=== PATIENT | female | born 1960 | race Caucasian/White ===

== ENCOUNTER 2016-06-24 20:15 | Emergency (ER) | payer OTHER ==
--- NOTE | 2016-06-24 20:57 | ED ORDER SUMMARY ---
..... Patient: TERRY RANDHAWA OrderSheet [facility] VisitID: [id number] [address] [place] [address] 55y, F Registration Date/Time: 06/24/2016 ORDER SHEET Weight: 81.6 kg (stated) Allergies: Norgesic, Accupril, Ceftin, Dicloxacillin, GlipiZIDE, Sulfa Antibiotics GENERAL ORDERS: David Wrap (20:49 06/24/2016 HBivens A.R.N.P.) (Ack 21:07 MethylGeneerty ER Audio/Visual Operator) (21:17 JRomanelli R.N.) Crutches (21:34 06/24/2016 Offerpop ER Audio/Visual Operator verbal order read back to HBivens A.R.N.P.) (21:34 Offerpop ER Audio/Visual Operator) MEDICATION ORDERS: Toradol IM 60 mg (NOW) (20:49 06/24/2016 HBivens A.R.N.P.) (21:16 JRomanelli R.N.) Valium IM 10 mg (HIGH ALERT MEDICATION, NOW) (20:50 06/24/2016 HBivens A.R.N.P.) (21:19 JRomanelli R.N.) IV FLUIDS: ORDER SHEET NOTES: [Electronically signed by Zonia DavisonR.N.P. (21:45 06/24/2016)] [Electronically signed by Elizabeth Motta R.N. (09:16 07/03/2016)] [Electronically locked/signed by Elizabeth Motta R.N. (09:16 07/03/2016)]
--- NOTE | 2016-06-24 20:57 | ED NURSING NOTES ---
Clinical Report - Nurses [facility] [address] [place] [address] 06/24/2016 20:17 Patient: TERRY RANDHAWA TRIAGE Triage time 20:20 Jun 24 2016. Acuity: LEVEL 3. Chief Complaint: RIGHT LOWER EXTREMITY PAIN. Alert. [place]ENCE COMA SCORE: [place] Coma Scale: 15- eyes open spontaneously (4); best verbal response- oriented x 4 (5); best motor response- obeys commands (6). --21:04 Dave Olvera R.N. 20:24 06/24/16. BP: 159/97. HR: 102. RR: 16. O2 saturation: 96% on room air. Temp: 98.3 F (oral). Pain level now: 4/10. Additional comments: (R) Knee. --21:04 Dave Olvera R.N. Weight: 81.6 kg stated. Height/Length: 58 inches Per Patient. BMI: 37.6. --20:28 Dave Olvera R.N. Medications OxyCODONE HCl Oral 10 mg, 3x a day. --20:35 Dave Olvera R.N. Promethazine HCl Oral. --20:44 Dave Olvera R.N. Nabumetone Oral. --20:45 Dave Olvera R.N. Albuterol Sulfate Inhalation. --20:45 Dave Olvera R.N. Roflumilast Oral. --20:46 Dave Olvera R.N. Potassium Chloride ER Oral. --20:47 Dave Olvera R.N. Albuterol Sulfate HFA Inhalation. Atorvastatin Calcium Oral. Spiriva HandiHaler Inhalation. Triamterene-HCTZ Oral. --20:59 Dave Olvera R.N. Diltiazem HCl ER Oral. Fluticasone Furoate Nasal. --20:59 Dave Olvera R.N. Clobetasol Prop & Cleanser External. [place] 3 Oral. --21:00 Dave Olvera R.N. Omeprazole Oral. --21:00 Dave Olvera R.N. Morphine Sulfate ER Beads Oral. --21:01 Dave Olvera R.N. Allergies Norgesic. --20:41 Dave Olvera R.N. Accupril. Ceftin. Dicloxacillin. GlipiZIDE. --20:41 Dave Olvera R.N. Sulfa Antibiotics. --20:42 Dave Olvera R.N. Medication/allergy information source: the patient. --21:04 Dave Olvera R.N. History Arrived by private vehicle. Historian: patient. Primary physician (Devin Patel). ( (R) Knee Pain). No injury occurred. This occurred (about 2 months ago). PAST MEDICAL HX: Tetanus status: up-to-date. Immunizations: status is unknown. SOCIAL HX: Heavy tobacco smoker- less than 1 pack per day. No alcohol use or drug use. No infectious disease exposure. ABUSE ASSESSMENT: No report of abuse. FALL RISK ASSESSMENT: Fall risk assessment completed. No fall risk identified. NUTRITIONAL RISK ASSESSMENT: The nutritional risk assessment revealed no deficiencies. FUNCTIONAL ASSESSMENT: Functional assessment: no impairments noted. LEARNING NEEDS ASSESSMENT: The learning needs assessment revealed no barriers. SKIN INTEGRITY ASSESSMENT: Skin integrity risk assessment completed. No skin integrity risk identified. --21:04 Dave Olvera R.N. PROBLEMS: Rectocele. Cystocele. Hypertension. Gout. Cervical CA. COPD - Chronic Obstructive Pulmonary Disease. Back Pain. Degenrerative Disc Diseasea. --20:39 Dave Olvera R.N. ADDITIONAL SURGERIES: Back Surgery. --20:39 Dave Olvera R.N. The following entry was struck by Dave Olvera R.N., 20:39 Reason - other <<STRICKEN ENTRY-- Gout. --20:25 Dave Olvera R.N. --END STRIKE>>. Interventions ID band on patient. To treatment room. --21:04 Dave Olvera R.N. PHYSICAL ASSESSMENT To room via wheelchair. GENERAL / NEURO / PSYCH: Oriented X 4. Alert. EXTREMITIES: Limited ROM present in the right knee. Extremity pulses are within normal limits. No lower extremity edema. Right knee: tenderness. SKIN: Skin intact. Skin is warm and dry. --21:05 Dave Olvera R.N. NURSING PROGRESS NOTES Reassurance given to the patient and patient's family. Patient identifiers checked. Call light placed in reach. Side rails up x 1. Bed placed in lowest position. Brakes of bed on. Patient ready for evaluation- chart flagged and ED physician notified. --21:05 Dave Olvera R.N. 21:07 06/24/2016 Toradol (Ketorolac Tromethamine) IM 60 mg given. Given in the left ventral gluteus. Allergies verified and confirmed 5 rights. --21:17 Dave Olvera R.N. 21:09 06/24/2016 Valium (Diazepam) IM 10 mg given. Given in the right ventral gluteus. Allergies verified, confirmed 5 rights and sedative warning given. --21:19 Dave Olvera R.N. <<STRICKEN ENTRY-- 21:11 06/24/2016 Toradol (Ketorolac Tromethamine) IM 60 mg given. Given in the right ventral gluteus. Allergies verified and confirmed 5 rights. --21:16 Dave Olvera R.N. --END STRIKE>> Correction. --21:19 Dave Olvera R.N. 6 inch debbie bandage applied to right knee by [employer]; distal pulses intact, sensation intact and motor function within normal limits. --21:18 Romel Snell, ER Diet Consultant 21:11 06/24/2016 Toradol (Ketorolac Tromethamine) IM 60 mg given. (double-charted). --21:19 Dave Olvera R.N. Patient fit with new crutches (youth). Crutch training performed by [employer]; the patient demonstrated proper use (prior use noted). --21:24 Romel Snell, ER Diet Consultant. DISPOSITION / DISCHARGE Departure time: 2119. --01:45 Dave Olvera R.N. 21:20. Condition at departure: improved. No learning barriers present. Discharge instructions provided and reviewed with the patient. Reviewed medication(s) (prescription given to pt). Reviewed referral to family practice and an orthopedic surgeon for followup. Patient verbalized understanding. Written instructions provided in Bahamian. The patient was discharged by the physician. She was discharged home and accompanied by family. She left the Emergency Department ambulatory and via private vehicle. Family member driving. --01:48 Dave Olvera R.N. <<STRICKEN ENTRY-- 01:49 06/25/16. BP: 150/86. HR: 100. RR: 18. O2 saturation: 96%. Temp: 98.5 F (oral). Pain level now: 08/02. --01:51 Dave Olvera R.N. --END STRIKE>> Correction. --01:51 Dave Olvera R.N. 21:15 06/24/16. BP: 150/86. HR: 100. RR: 18. O2 saturation: 96% on room air. Temp: 98.5 F (oral). Pain level now: 08/02. Additional comments: R Knee Pain. --01:53 Dave Olvera R.N. Locked/Released at 07/03/2016 9:16 by Elizabeth Motta R.N.
--- NOTE | 2016-06-24 20:57 | ED NURSING NOTES ---
Clinical Report - Nurses [facility] [address] [place] [address] 06/24/2016 20:17 Patient: TERRY RANDHAWA TRIAGE Triage time 20:20 Jun 24 2016. Acuity: LEVEL 3. Chief Complaint: RIGHT LOWER EXTREMITY PAIN. Alert. FLORENCE COMA SCORE: [place] Coma Scale: 15- eyes open spontaneously (4); best verbal response- oriented x 4 (5); best motor response- obeys commands (6). --21:04 Dave Olvera R.N. 20:24 06/24/16. BP: 159/97. HR: 102. RR: 16. O2 saturation: 96% on room air. Temp: 98.3 F (oral). Pain level now: 4/10. Additional comments: (R) Knee. --21:04 Dave Olvera R.N. Weight: 81.6 kg stated. Height/Length: 58 inches Per Patient. BMI: 37.6. --20:28 Dave Olvera R.N. Medications OxyCODONE HCl Oral 10 mg, 3x a day. --20:35 Dave Olvera R.N. Promethazine HCl Oral. --20:44 Dave Olvera R.N. Nabumetone Oral. --20:45 Dave Olvera R.N. Albuterol Sulfate Inhalation. --20:45 Dave Olvera R.N. Roflumilast Oral. --20:46 Dave Olvera R.N. Potassium Chloride ER Oral. --20:47 Dvae Olvera R.N. Albuterol Sulfate HFA Inhalation. Atorvastatin Calcium Oral. Spiriva HandiHaler Inhalation. Triamterene-HCTZ Oral. --20:59 Dave Olvera R.N. Diltiazem HCl ER Oral. Fluticasone Furoate Nasal. --20:59 Dave Olvera R.N. Clobetasol Prop & Cleanser External. [place] 3 Oral. --21:00 Dave Olvera R.N. Omeprazole Oral. --21:00 Dave Olvera R.N. Morphine Sulfate ER Beads Oral. --21:01 Dave Olvera R.N. Allergies Norgesic. --20:41 Dave Olvera R.N. Accupril. Ceftin. Dicloxacillin. GlipiZIDE. --20:41 Dave Olvera R.N. Sulfa Antibiotics. --20:42 Dave Olvera R.N. Medication/allergy information source: the patient. --21:04 Dave Olvera R.N. History Arrived by private vehicle. Historian: patient. Primary physician (Devin Patel). ( (R) Knee Pain). No injury occurred. This occurred (about 2 months ago). PAST MEDICAL HX: Tetanus status: up-to-date. Immunizations: status is unknown. SOCIAL HX: Heavy tobacco smoker- less than 1 pack per day. No alcohol use or drug use. No infectious disease exposure. ABUSE ASSESSMENT: No report of abuse. FALL RISK ASSESSMENT: Fall risk assessment completed. No fall risk identified. NUTRITIONAL RISK ASSESSMENT: The nutritional risk assessment revealed no deficiencies. FUNCTIONAL ASSESSMENT: Functional assessment: no impairments noted. LEARNING NEEDS ASSESSMENT: The learning needs assessment revealed no barriers. SKIN INTEGRITY ASSESSMENT: Skin integrity risk assessment completed. No skin integrity risk identified. --21:04 Dave Olvera R.N. PROBLEMS: Rectocele. Cystocele. Hypertension. Gout. Cervical CA. COPD - Chronic Obstructive Pulmonary Disease. Back Pain. Degenrerative Disc Diseasea. --20:39 Dave Olvera R.N. ADDITIONAL SURGERIES: Back Surgery. --20:39 Dave Olvera R.N. The following entry was struck by Dave Olvera R.N., 20:39 Reason - other <<STRICKEN ENTRY-- Gout. --20:25 Dave Olvera R.N. --END STRIKE>>. Interventions ID band on patient. To treatment room. --21:04 Dave Olvera R.N. PHYSICAL ASSESSMENT To room via wheelchair. GENERAL / NEURO / PSYCH: Oriented X 4. Alert. EXTREMITIES: Limited ROM present in the right knee. Extremity pulses are within normal limits. No lower extremity edema. Right knee: tenderness. SKIN: Skin intact. Skin is warm and dry. --21:05 Dave Olvera R.N. NURSING PROGRESS NOTES Reassurance given to the patient and patient's family. Patient identifiers checked. Call light placed in reach. Side rails up x 1. Bed placed in lowest position. Brakes of bed on. Patient ready for evaluation- chart flagged and ED physician notified. --21:05 Dave Olvera R.N. 21:07 06/24/2016 Toradol (Ketorolac Tromethamine) IM 60 mg given. Given in the left ventral gluteus. Allergies verified and confirmed 5 rights. --21:17 Dave Olvera R.N. 21:09 06/24/2016 Valium (Diazepam) IM 10 mg given. Given in the right ventral gluteus. Allergies verified, confirmed 5 rights and sedative warning given. --21:19 Dave Olvera R.N. <<STRICKEN ENTRY-- 21:11 06/24/2016 Toradol (Ketorolac Tromethamine) IM 60 mg given. Given in the right ventral gluteus. Allergies verified and confirmed 5 rights. --21:16 Dave Olvera R.N. --END STRIKE>> Correction. --21:19 Dave Olvera R.N. 6 inch debbie bandage applied to right knee by [employer]; distal pulses intact, sensation intact and motor function within normal limits. --21:18 Romel Snell, ER Geodetic Surveyor Technologist 21:11 06/24/2016 Toradol (Ketorolac Tromethamine) IM 60 mg given. (double-charted). --21:19 Dave Olvera R.N. Patient fit with new crutches (youth). Crutch training performed by [employer]; the patient demonstrated proper use (prior use noted). --21:24 Romel Snell, ER Geodetic Surveyor Technologist. DISPOSITION / DISCHARGE Departure time: 2119. --01:45 Dave Olvera R.N. 21:20. Condition at departure: improved. No learning barriers present. Discharge instructions provided and reviewed with the patient. Reviewed medication(s) (prescription given to pt). Reviewed referral to family practice and an orthopedic surgeon for followup. Patient verbalized understanding. Written instructions provided in Bermudian. The patient was discharged by the physician. She was discharged home and accompanied by family. She left the Emergency Department ambulatory and via private vehicle. Family member driving. --01:48 Dave Olvera R.N. <<STRICKEN ENTRY-- 01:49 06/25/16. BP: 150/86. HR: 100. RR: 18. O2 saturation: 96%. Temp: 98.5 F (oral). Pain level now: 08/02. --01:51 Dave Olvera R.N. --END STRIKE>> Correction. --01:51 Dave Olvera R.N. 21:15 06/24/16. BP: 150/86. HR: 100. RR: 18. O2 saturation: 96% on room air. Temp: 98.5 F (oral). Pain level now: 08/02. Additional comments: R Knee Pain. --01:53 Dave Olvera R.N. Locked/Released at 07/03/2016 9:16 by Elizabeth Motta R.N.
--- NOTE | 2016-06-24 20:57 | ED CLINICAL REPORT ---
Clinical Report - Physicians/Mid Levels [facility] [address] [place] [address] 06/24/2016 20:17 Patient: TERRY RANDHAWA Time Seen: 2039; upon arrival, initial patient contact, initial documentation, patient care assumed. Arrived- By private vehicle. Historian- patient. HISTORY OF PRESENT ILLNESS Chief Complaint: LOWER EXTREMITY PAIN. Severity is described as being mild. The quality is noted to be "pain" and similar to prior episodes. This started about 2 months ago or longer and is still present. Symptoms located in the area of the right knee. The patient has not had redness. No swelling, bladder dysfunction, bowel dysfunction, sensory loss or motor loss. She has had difficulty walking. Patient denies an injury. Similar symptoms previously: Frequently, milder. Recent medical care: The patient was seen recently in the office. ( saw her pcp for it, xrays done, and pt has copies with her, f/u with ortho, but knee still hurts, pt states she is taking her pain pills and doubling up on them, for her back pain and the pills do help her back pain, but not the knee, pt admits she is frustrated and getting anxious, because she wants a ct or more testing done on her knee to figure out what is wrong with it, because so far they can't find anything and she knows something is in there, and she thinks she has bone ca). REVIEW OF SYSTEMS No chest pain, difficulty breathing or fever. All systems otherwise negative, except as recorded above. PAST HISTORY See nurses notes. ( PROBLEMS: Rectocele. Cystocele. Hypertension. Gout. Cervical CA. COPD - Chronic Obstructive Pulmonary Disease. Back Pain. Degenrerative Disc Diseasea. --20:39 Dave Olvera, R.N. ADDITIONAL SURGERIES: Back Surgery. --20:39 Dave Olvera, R.N.). SOCIAL HISTORY No recent travel. Is a local resident. FAMILY HISTORY Negative. ADDITIONAL NOTES The nursing notes have been reviewed with agreement regarding the chief complaint, HPI, ROS, PMH and patient medications and allergies. PHYSICAL EXAM Appearance: Alert. Oriented X3. No acute distress. (pt fine one minute and then the next starts yelling out in pain and getting anxious). Eyes: Pupils equal, round and reactive to light. Eyes normal inspection. Neck: Normal inspection. Neck supple. Respiratory: No respiratory distress. Skin: Skin intact. Skin warm and dry. Normal skin color. Normal skin turgor. Extremities: Right knee: mild tenderness located in the patella and lateral collateral ligament. Limited ROM (diminished flexion). Neurovascular intact distally. No ligamentous laxity present. No joint effusion. No erythema, swelling, laceration, abrasion or ecchymosis. No puncture wound, foreign body or deformity. Lower extremities exhibit normal ROM. No lower extremity edema. Extremities otherwise negative. Gait: Abnormal gait. Limping gait. Neuro: Oriented X 3. No motor deficit. No sensory deficit. PROGRESS AND PROCEDURES Course of Care: discussion with pt re tx options, mri, knee braces/wraps, steroids, what other meds to try, f/u with ortho pt has ronald for narcs, last rx #[id number] oxycodone on 06/15, see report for full details. Patient counseled in person regarding the patient's stable condition and diagnosis. 20:56. Differential Diagnosis: I considered fracture, stress fracture, aseptic necrosis, primary tumor of bone, metastatic cancer, rheumatoid arthritis, gout, pseudogout, hyperextension, meniscus tear, anterior cruciate ligament tear, ligament tear, soft tissue hematoma, myositis, fasciitis, tendonitis, bursitis and Barragan's cyst as a possible cause of lower extremity pain in this patient. This is a partial list of diagnoses considered. Above considerations are based on history and physical exam. Differential diagnosis was discussed with patient. Disposition: Discharged home in good and improved condition (20:57). Condition: good and stable. CLINICAL IMPRESSION Chronic right knee pain. INSTRUCTIONS Warnings: GENERAL WARNINGS: Return or contact your physician immediately if your condition worsens or changes unexpectedly, if not improving as expected, or if other problems arise. Specifically return if problem worsens. Prescription Medications: Toradol 10 mg tablets: Take 1 tablet orally every 6 hours as needed. Dispense fifteen (15). No refills. Substitution is permissible. Prednisone 20 mg: take 3 orally every day for 5 days. Dispense fifteen (15). No refills. Follow-up: Follow up with your doctor in about three days even if well. Call for an appointment. Summary of care provided to patient. Understanding of the discharge instructions verbalized by patient. (Electronically signed by Zonia Davison A.R.N.P. 06/24/2016 21:45)
--- NOTE | 2016-06-24 20:57 | ED ORDER SUMMARY ---
..... Patient: TERRY RANDHAWA OrderSheet [facility] VisitID: [id number] [address] [place] [address] 55y, F Registration Date/Time: 06/24/2016 ORDER SHEET Weight: 81.6 kg (stated) Allergies: Norgesic, Accupril, Ceftin, Dicloxacillin, GlipiZIDE, Sulfa Antibiotics GENERAL ORDERS: David Wrap (20:49 06/24/2016 HBivens A.R.N.P.) (Ack 21:07 Healthy [employer] ER Metal Control Worker) (21:17 JRomanelli R.N.) Crutches (21:34 06/24/2016 [employer] ER Metal Control Worker verbal order read back to HBivens A.R.N.P.) (21:34 [employer] ER Metal Control Worker) MEDICATION ORDERS: Toradol IM 60 mg (NOW) (20:49 06/24/2016 HBivens A.R.N.P.) (21:16 JRomanelli R.N.) Valium IM 10 mg (HIGH ALERT MEDICATION, NOW) (20:50 06/24/2016 HBivens A.R.N.P.) (21:19 JRomanelli R.N.) IV FLUIDS: ORDER SHEET NOTES: [Electronically signed by Zonia DavisonR.N.P. (21:45 06/24/2016)] [Electronically signed by Elizabeth Motta R.N. (09:16 07/03/2016)] [Electronically locked/signed by Elizabeth Motta R.N. (09:16 07/03/2016)]
--- NOTE | 2016-07-03 09:17 | ED MED RECONCILIATION SUMMARY ---
Patient: TERRY RANDHAWA Medication Reconciliation Report [facility] VisitID: [id number] [address] [place] [address] 55y, F Registration Date/Time: 06/24/2016 Weight: 81.6 kg Height/Length: 58 in. BMI: 37.6 ALLERGIES: Accupril, Ceftin, Dicloxacillin, GlipiZIDE, Norgesic, Sulfa Antibiotics The patient's Home Medications are listed below: THE FOLLOWING MEDICATIONS NEED TO BE RECONCILED: Albuterol Sulfate HFA Inhalation Albuterol Sulfate Inhalation Atorvastatin Calcium Oral Clobetasol Prop & Cleanser External Diltiazem HCl ER Oral Fluticasone Furoate Nasal Morphine Sulfate ER Beads Oral Nabumetone Oral [place] 3 Oral Omeprazole Oral OxyCODONE HCl Oral 10 mg, 3x a day Potassium Chloride ER Oral Promethazine HCl Oral Roflumilast Oral Spiriva HandiHaler Inhalation Triamterene-HCTZ Oral The source(s) of the original Home Medication information: patient The following Medications were given to the patient in the Emergency Department: Toradol [IM] IM 60 mg, administered: 06/24/2016 9:11:00 PM Toradol [IM] IM 60 mg, administered: 06/24/2016 9:07:00 PM Valium [IM] IM 10 mg, administered: 06/24/2016 9:09:00 PM The following Medications were prescribed to the patient: Toradol 10 mg tablets: Take 1 tablet orally every 6 hours as needed. Dispense fifteen (15). No refills. Substitution is permissible. -- Zonia Davison, JulioR.N.P. Prednisone 20 mg: take 3 orally every day for 5 days. Dispense fifteen (15). No refills. -- Zonia Davison, Yohana.R.N.P.
--- NOTE | 2016-07-03 09:17 | ED MED RECONCILIATION SUMMARY ---
Patient: TERRY RANDHAWA Medication Reconciliation Report [facility] VisitID: [id number] [address] [place] [address] 55y, F Registration Date/Time: 06/24/2016 Weight: 81.6 kg Height/Length: 58 in. BMI: 37.6 ALLERGIES: Accupril, Ceftin, Dicloxacillin, GlipiZIDE, Norgesic, Sulfa Antibiotics The patient's Home Medications are listed below: THE FOLLOWING MEDICATIONS NEED TO BE RECONCILED: Albuterol Sulfate HFA Inhalation Albuterol Sulfate Inhalation Atorvastatin Calcium Oral Clobetasol Prop & Cleanser External Diltiazem HCl ER Oral Fluticasone Furoate Nasal Morphine Sulfate ER Beads Oral Nabumetone Oral [place] 3 Oral Omeprazole Oral OxyCODONE HCl Oral 10 mg, 3x a day Potassium Chloride ER Oral Promethazine HCl Oral Roflumilast Oral Spiriva HandiHaler Inhalation Triamterene-HCTZ Oral The source(s) of the original Home Medication information: patient The following Medications were given to the patient in the Emergency Department: Toradol [IM] IM 60 mg, administered: 06/24/2016 9:11:00 PM Toradol [IM] IM 60 mg, administered: 06/24/2016 9:07:00 PM Valium [IM] IM 10 mg, administered: 06/24/2016 9:09:00 PM The following Medications were prescribed to the patient: Toradol 10 mg tablets: Take 1 tablet orally every 6 hours as needed. Dispense fifteen (15). No refills. Substitution is permissible. -- Zonia Davison, JulioR.N.P. Prednisone 20 mg: take 3 orally every day for 5 days. Dispense fifteen (15). No refills. -- Zonia Davison, Yohana.R.N.P.
--- NOTE | 2016-07-03 09:17 | ED DISCHARGE INSTRUCTIONS ---
Patient: TERRY RANDHAWA General Instructions [facility] VisitID: [id number] [place] [address] 55y, F Registration Date/Time: 06/24/2016 Chronic right knee pain. INSTRUCTIONS Warnings: GENERAL WARNINGS: Return or contact your physician immediately if your condition worsens or changes unexpectedly, if not improving as expected, or if other problems arise. Specifically return if problem worsens. Prescription Medications: Toradol 10 mg tablets: Take 1 tablet orally every 6 hours as needed. Dispense fifteen (15). No refills. Substitution is permissible. Prednisone 20 mg: take 3 orally every day for 5 days. Dispense fifteen (15). No refills. Follow-up: Follow up with your doctor in about three days even if well. Call for an appointment. Summary of care provided to patient. Understanding of the discharge instructions verbalized by patient. ADDITIONAL INFORMATION Myofascial Pain Syndrome: Fibrositis Your pain is caused by a state of chronic muscle tension. This condition is called by various names: myofascial pain, fibrositis and trigger point pain. This can also be due to mechanical stress (such as working at a computer terminal for long periods; or work that requires repetitive motions of the arms or hands) or emotional stress (such as problems on the job or in your personal life). Sometimes there is no obvious cause. The pain can occur in the area of the muscle spasm or at a site distant to it. For example, spasm of a neck muscle can cause headache. Spasm of the muscle near the shoulder blade can cause pain shooting down the arm. Home Care: Try to identify the factors that may be causing your problem and change them: If you feel thatemotional stressis a cause of your pain, learn methods to deal more effectively with the stress in your life. These may include regular exercise, muscle relaxation techniques, meditation or simply taking time out for yourself. Consult your doctor or go to a local bookstore and review the many books and tapes available on the subject of stress reduction. If you feel that physical stress is a cause for your pain, try to modify any poor work habits. You may use acetaminophen (Tylenol) or ibuprofen (Motrin, Advil) to control pain, unless another medicine was prescribed. [NOTE: If you have chronic liver or kidney disease or ever had a stomach ulcer or GI bleeding, talk with your doctor before using these medicines.] The use of heat to the muscle (hot compress or heating pad) will be helpful to reduce muscle spasm. Some persons get relief with ice packs. Apply an ice pack (crushed or cubed ice in a plastic bag, wrapped in a towel) for 20 minutes at a time as needed. Use the method that feels best to you. Massaging the trigger point and stretching out the muscleare an important parts of prevention and treatment. Trigger point massage can be done by first applying heat to the area to warm and prepare the muscle. Have someone apply steady thumb pressure directly on the knot in the muscle (the most tender point) for 30 seconds. Release the pressure, then massage the surrounding muscle. Repeat the process, applying more pressure to the trigger point each time. Do this up to the limit of pain. With each treatment, the trigger point should become less tender and the pain should decrease. You can apply local pressure to trigger points in the back by lying on the floor with a tennis ball under the trigger point. Follow Up with your doctor as advised or if not improving within the next week. It may be necessary for you to receive physical therapy if you do not respond to home treatment alone. Get Prompt Medical Attention if any of the following occur: If your trigger point is in the chest muscles, observe for pain that becomes more severe, lasts longer, or spreads into your shoulder/arm, neck or back; you develop trouble breathing, sweating, nausea or vomiting in association with chest pain If you develop weakness or numbness in an extremity If your pain worsens, regardless of its location Osteoarthritis Osteoarthritis (also called Degenerative Joint Disease) is the most common form of arthritis in adults over 50. It is not the same as Rheumatoid Arthritis. The exact cause is not known but may be related to excess wear and tear on the joint over a long period of time. Prior injury to that joint, or repeated stress on a joint can also cause this type of arthritis. Osteoarthritis most often affects the hands, knees, spine and hips (in that order). The most common symptoms are joint stiffness, pain and swelling. Home Care: When a joint is more sore than usual, rest that joint for a day or two. Heat is very helpful. This can be provided by taking hot baths, applying a heating pad for up to 30 minutes at a time. Because symptoms are usually worse in the morning, many patients like to take a hot bath just after awakening to relax the muscle and soothe the joints. Exercise is the most important part of home treatment for osteoarthritis. This prevents the muscles and ligaments around the joint from becoming weak and helps maintain the full range of joint motion. This limits further damage to the joint. If you are overweight, this puts a lot of extra strain on weight-bearing joints of the lower back, hips, knees, feet and ankles. Losing weight will improve your arthritis symptoms in these joints. Talk to your doctor about a safe and effective weight loss program for yourself. Anti-inflammatory medicine such as ibuprofen (Advil, Motrin) or naproxen (Aleve) is often used to treat this condition. If this alone is not helping, your doctor may prescribe a stronger medicine. If narcotic pain medicines have been prescribed, they should be used in addition to anti-inflammatory drugs and only for severe pain. Follow Up with your doctor as advised by our staff. Get Prompt Medical Attention if any of the following occur: Redness or swelling of a painful joint Fever of 100.4F (38C) or higher, or as directed by your healthcare provider Worsening joint pain Ketorolac Tromethamine Oral tablet What is this medicine? KETOROLAC (essence toe ROLE ak) is a non-steroidal anti-inflammatory drug (NSAID). It is used for a short while to treat moderate to severe pain, including pain after surgery. It should not be used for more than 5 days. How should I use this medicine? Take this medicine by mouth with a full glass of water. Follow the directions on the prescription label. Take your medicine at regular intervals. Do not take your medicine more often than directed. Do not take more than the recommended dose. A special MedGuide will be given to you by the pharmacist with each prescription and refill. Be sure to read this information carefully each time. Talk to your rim roller setter regarding the use of this medicine in children. While this drug may be prescribed for children as young as 16 years of age for selected conditions, precautions do apply. Patients over 65 years old may have a stronger reaction and need a smaller dose. What side effects may I notice from receiving this medicine? Side effects that you should report to your doctor or health clinical manager home care as soon as possible: allergic reactions like skin rash, itching or hives, swelling of the face, lips, or tongue black or tarry stools breathing problems changes in vision chest pain high blood pressure nausea or vomiting redness, blistering, peeling or loosening of the skin, including inside the mouth severe abdominal pain slurred speech or weakness on one side of the body unexplained weight gain or swelling unusual bleeding or bruising unusually weak or tired yellowing of eyes or skin Side effects that usually do not require medical attention (report to your doctor or health clinical manager home care if they continue or are bothersome): diarrhea dizziness headache heartburn What may interact with this medicine? Do not take this medicine with any of the following medications: aspirin and aspirin-like medicines cidofovir methotrexate NSAIDs, medicines for pain and inflammation, like ibuprofen or naproxen pemetrexed probenecid This medicine may also interact with the following medications: alcohol alendronate alprazolam carbamazepine cyclosporine diuretics flavocoxid fluoxetine ginkgo lithium medicines for high blood pressure like enalapril medicines that affect platelets like pentoxifylline medicines that treat or prevent blood clots like heparin, warfarin muscle relaxants phenytoin steroid medicines like prednisone or cortisone thiothixene What if I miss a dose? If you miss a dose, take it as soon as you can. If it is almost time for your next dose, take only that dose. Do not take double or extra doses. Where should I keep my medicine? Keep out of the reach of children. Store at room temperature between 20 and 25 degrees C (68 and 77 degrees F). Throw away any unused medicine after the expiration date. What should I tell my health care provider before I take this medicine? They need to know if you have any of these conditions: asthma bleeding problems like hemophilia cigarette smoker drink more than 3 alcohol containing drinks a day heart disease or circulation problems such as heart failure or leg edema (fluid retention) high blood pressure kidney disease liver disease stomach bleeding or ulcers an unusual or allergic reaction to ketorolac, aspirin, other NSAIDs, other medicines, foods, dyes, or preservatives or trying to get breast-feeding What should I watch for while using this medicine? Tell your doctor or health clinical manager home care if your pain does not get better. Talk to your doctor before taking another medicine for pain. Do not treat yourself. This medicine does not prevent heart attack or stroke. In fact, this medicine may increase the chance of a heart attack or stroke. The chance may increase with longer use of this medicine and in people who have heart disease. If you take aspirin to prevent heart attack or stroke, talk with your doctor or health clinical manager home care. Do not take medicines such as ibuprofen and naproxen with this medicine. Side effects such as stomach upset, nausea, or ulcers may be more likely to occur. Many medicines available without a prescription should not be taken with this medicine. This medicine can cause ulcers and bleeding in the stomach and intestines at any time during treatment. Do not smoke cigarettes or drink alcohol. These increase irritation to your stomach and can make it more susceptible to damage from this medicine. Ulcers and bleeding can happen without warning symptoms and can cause . You may get drowsy or dizzy. Do not drive, use machinery, or do anything that needs mental alertness until you know how this medicine affects you. Do not stand or sit up quickly, especially if you are an older patient. This reduces the risk of dizzy or fainting spells. This medicine can cause you to bleed more easily. Try to avoid damage to your teeth and gums when you brush or floss your teeth. Prednisone Oral tablet What is this medicine? PREDNISONE (PRED ni sone) is a corticosteroid. It is commonly used to treat inflammation of the skin, joints, lungs, and other organs. Common conditions treated include asthma, allergies, and arthritis. It is also used for other conditions, such as blood disorders and diseases of the adrenal glands. How should I use this medicine? Take this medicine by mouth with a glass of water. Follow the directions on the prescription label. Take this medicine with food. If you are taking this medicine once a day, take it in the morning. Do not take more medicine than you are told to take. Do not suddenly stop taking your medicine because you may develop a severe reaction. Your doctor will tell you how much medicine to take. If your doctor wants you to stop the medicine, the dose may be slowly lowered over time to avoid any side effects. Talk to your rim roller setter regarding the use of this medicine in children. Special care may be needed. What side effects may I notice from receiving this medicine? Side effects that you should report to your doctor or health clinical manager home care as soon as possible: allergic reactions like skin rash, itching or hives, swelling of the face, lips, or tongue changes in emotions or moods changes in vision depressed mood eye pain fever or chills, cough, sore throat, pain or difficulty passing urine increased thirst swelling of ankles, feet Side effects that usually do not require medical attention (report to your doctor or health clinical manager home care if they continue or are bothersome): confusion, excitement, restlessness headache nausea, vomiting skin problems, acne, thin and shiny skin trouble sleeping weight gain What may interact with this medicine? Do not take this medicine with any of the following medications: metyrapone mifepristone This medicine may also interact with the following medications: aminoglutethimide amphotericin B aspirin and aspirin-like medicines barbiturates certain medicines for diabetes, like glipizide or glyburide cholestyramine cholinesterase inhibitors cyclosporine digoxin diuretics ephedrine female hormones, like estrogens and control pills isoniazid ketoconazole NSAIDS, medicines for pain and inflammation, like ibuprofen or naproxen phenytoin rifampin toxoids vaccines warfarin What if I miss a dose? If you miss a dose, take it as soon as you can. If it is almost time for your next dose, talk to your doctor or health clinical manager home care. You may need to miss a dose or take an extra dose. Do not take double or extra doses without advice. Where should I keep my medicine? Keep out of the reach of children. Store at room temperature between 15 and 30 degrees C (59 and 86 degrees F). Protect from light. Keep container tightly closed. Throw away any unused medicine after the expiration date. What should I tell my health care provider before I take this medicine? They need to know if you have any of these conditions: Norwalk's syndrome diabetes glaucoma heart disease high blood pressure infection (especially a virus infection such as chickenpox, cold sores, or herpes) kidney disease liver disease mental illness myasthenia gravis osteoporosis seizures stomach or intestine problems thyroid disease an unusual or allergic reaction to lactose, prednisone, other medicines, foods, dyes, or preservatives or trying to get breast-feeding What should I watch for while using this medicine? Visit your doctor or health clinical manager home care for regular checks on your progress. If you are taking this medicine over a prolonged period, carry an identification card with your name and address, the type and dose of your medicine, and your doctor's name and address. This medicine may increase your risk of getting an infection. Tell your doctor or health clinical manager home care if you are around anyone with measles or chickenpox, or if you develop sores or blisters that do not heal properly. If you are going to have surgery, tell your doctor or health clinical manager home care that you have taken this medicine within the last twelve months. Ask your doctor or health clinical manager home care about your diet. You may need to lower the amount of salt you eat. This medicine may affect blood sugar levels. If you have diabetes, check with your doctor or health clinical manager home care before you change your diet or the dose of your diabetic medicine. You have been given the following additional information: Myofascial Pain Syndrome Osteoarthritis Ketorolac Tromethamine Oral tablet Prednisone Oral tablet (Electronically signed by Zonia Davison A.R.N.P. 06/24/2016 21:45)
--- NOTE | 2016-07-03 09:17 | ED MAR SUMMARY ---
..... Medication Administration Record [facility] [address] [place] [address] Patient: TERRY RANDHAWA Visit ID: [id number] 55y, F Weight: 81.6 kg Height/Length: 58 in BMI: 37.6 ALLERGIES: Sulfa Antibiotics, GlipiZIDE, Accupril, Ceftin, Dicloxacillin, Norgesic Given 21:07 06/24/2016 Dave Olvera RWinN. Medication Administered: TORADOL [IM] (KETOROLAC TROMETHAMINE), Dose: 60 mg IM. Medication Ordered: Toradol IM 60 mg (NOW). Given 21:09 06/24/2016 Dave Olvera RWinN. Medication Administered: VALIUM [IM] (DIAZEPAM), Dose: 10 mg IM. Medication Ordered: Valium IM 10 mg (HIGH ALERT MEDICATION, NOW). Given 21:11 06/24/2016 Dave Olvera, RWinN. Medication Administered: TORADOL [IM] (KETOROLAC TROMETHAMINE), Dose: 60 mg IM. Medication Ordered: Toradol IM 60 mg (NOW).
--- NOTE | 2016-07-03 09:17 | ED MAR SUMMARY ---
..... Medication Administration Record [facility] [address] [place] [address] Patient: TERRY RANDHAWA Visit ID: [id number] 55y, F Weight: 81.6 kg Height/Length: 58 in BMI: 37.6 ALLERGIES: Sulfa Antibiotics, GlipiZIDE, Accupril, Ceftin, Dicloxacillin, Norgesic Given 21:07 06/24/2016 Dave Olvera RWinN. Medication Administered: TORADOL [IM] (KETOROLAC TROMETHAMINE), Dose: 60 mg IM. Medication Ordered: Toradol IM 60 mg (NOW). Given 21:09 06/24/2016 Dave Olvera RWinN. Medication Administered: VALIUM [IM] (DIAZEPAM), Dose: 10 mg IM. Medication Ordered: Valium IM 10 mg (HIGH ALERT MEDICATION, NOW). Given 21:11 06/24/2016 Dave Olvera, RWinN. Medication Administered: TORADOL [IM] (KETOROLAC TROMETHAMINE), Dose: 60 mg IM. Medication Ordered: Toradol IM 60 mg (NOW).
--- NOTE | 2016-07-03 09:17 | ED DISCHARGE INSTRUCTIONS ---
Patient: TERRY RANDHAWA General Instructions [facility] VisitID: [id number] [place] [address] 55y, F Registration Date/Time: 06/24/2016 Chronic right knee pain. INSTRUCTIONS Warnings: GENERAL WARNINGS: Return or contact your physician immediately if your condition worsens or changes unexpectedly, if not improving as expected, or if other problems arise. Specifically return if problem worsens. Prescription Medications: Toradol 10 mg tablets: Take 1 tablet orally every 6 hours as needed. Dispense fifteen (15). No refills. Substitution is permissible. Prednisone 20 mg: take 3 orally every day for 5 days. Dispense fifteen (15). No refills. Follow-up: Follow up with your doctor in about three days even if well. Call for an appointment. Summary of care provided to patient. Understanding of the discharge instructions verbalized by patient. ADDITIONAL INFORMATION Myofascial Pain Syndrome: Fibrositis Your pain is caused by a state of chronic muscle tension. This condition is called by various names: myofascial pain, fibrositis and trigger point pain. This can also be due to mechanical stress (such as working at a computer terminal for long periods; or work that requires repetitive motions of the arms or hands) or emotional stress (such as problems on the job or in your personal life). Sometimes there is no obvious cause. The pain can occur in the area of the muscle spasm or at a site distant to it. For example, spasm of a neck muscle can cause headache. Spasm of the muscle near the shoulder blade can cause pain shooting down the arm. Home Care: Try to identify the factors that may be causing your problem and change them: If you feel thatemotional stressis a cause of your pain, learn methods to deal more effectively with the stress in your life. These may include regular exercise, muscle relaxation techniques, meditation or simply taking time out for yourself. Consult your doctor or go to a local bookstore and review the many books and tapes available on the subject of stress reduction. If you feel that physical stress is a cause for your pain, try to modify any poor work habits. You may use acetaminophen (Tylenol) or ibuprofen (Motrin, Advil) to control pain, unless another medicine was prescribed. [NOTE: If you have chronic liver or kidney disease or ever had a stomach ulcer or GI bleeding, talk with your doctor before using these medicines.] The use of heat to the muscle (hot compress or heating pad) will be helpful to reduce muscle spasm. Some persons get relief with ice packs. Apply an ice pack (crushed or cubed ice in a plastic bag, wrapped in a towel) for 20 minutes at a time as needed. Use the method that feels best to you. Massaging the trigger point and stretching out the muscleare an important parts of prevention and treatment. Trigger point massage can be done by first applying heat to the area to warm and prepare the muscle. Have someone apply steady thumb pressure directly on the knot in the muscle (the most tender point) for 30 seconds. Release the pressure, then massage the surrounding muscle. Repeat the process, applying more pressure to the trigger point each time. Do this up to the limit of pain. With each treatment, the trigger point should become less tender and the pain should decrease. You can apply local pressure to trigger points in the back by lying on the floor with a tennis ball under the trigger point. Follow Up with your doctor as advised or if not improving within the next week. It may be necessary for you to receive physical therapy if you do not respond to home treatment alone. Get Prompt Medical Attention if any of the following occur: If your trigger point is in the chest muscles, observe for pain that becomes more severe, lasts longer, or spreads into your shoulder/arm, neck or back; you develop trouble breathing, sweating, nausea or vomiting in association with chest pain If you develop weakness or numbness in an extremity If your pain worsens, regardless of its location Osteoarthritis Osteoarthritis (also called Degenerative Joint Disease) is the most common form of arthritis in adults over 50. It is not the same as Rheumatoid Arthritis. The exact cause is not known but may be related to excess wear and tear on the joint over a long period of time. Prior injury to that joint, or repeated stress on a joint can also cause this type of arthritis. Osteoarthritis most often affects the hands, knees, spine and hips (in that order). The most common symptoms are joint stiffness, pain and swelling. Home Care: When a joint is more sore than usual, rest that joint for a day or two. Heat is very helpful. This can be provided by taking hot baths, applying a heating pad for up to 30 minutes at a time. Because symptoms are usually worse in the morning, many patients like to take a hot bath just after awakening to relax the muscle and soothe the joints. Exercise is the most important part of home treatment for osteoarthritis. This prevents the muscles and ligaments around the joint from becoming weak and helps maintain the full range of joint motion. This limits further damage to the joint. If you are overweight, this puts a lot of extra strain on weight-bearing joints of the lower back, hips, knees, feet and ankles. Losing weight will improve your arthritis symptoms in these joints. Talk to your doctor about a safe and effective weight loss program for yourself. Anti-inflammatory medicine such as ibuprofen (Advil, Motrin) or naproxen (Aleve) is often used to treat this condition. If this alone is not helping, your doctor may prescribe a stronger medicine. If narcotic pain medicines have been prescribed, they should be used in addition to anti-inflammatory drugs and only for severe pain. Follow Up with your doctor as advised by our staff. Get Prompt Medical Attention if any of the following occur: Redness or swelling of a painful joint Fever of 100.4F (38C) or higher, or as directed by your healthcare provider Worsening joint pain Ketorolac Tromethamine Oral tablet What is this medicine? KETOROLAC (essence toe ROLE ak) is a non-steroidal anti-inflammatory drug (NSAID). It is used for a short while to treat moderate to severe pain, including pain after surgery. It should not be used for more than 5 days. How should I use this medicine? Take this medicine by mouth with a full glass of water. Follow the directions on the prescription label. Take your medicine at regular intervals. Do not take your medicine more often than directed. Do not take more than the recommended dose. A special MedGuide will be given to you by the pharmacist with each prescription and refill. Be sure to read this information carefully each time. Talk to your ferry engineer regarding the use of this medicine in children. While this drug may be prescribed for children as young as 16 years of age for selected conditions, precautions do apply. Patients over 65 years old may have a stronger reaction and need a smaller dose. What side effects may I notice from receiving this medicine? Side effects that you should report to your doctor or health patient care manager as soon as possible: allergic reactions like skin rash, itching or hives, swelling of the face, lips, or tongue black or tarry stools breathing problems changes in vision chest pain high blood pressure nausea or vomiting redness, blistering, peeling or loosening of the skin, including inside the mouth severe abdominal pain slurred speech or weakness on one side of the body unexplained weight gain or swelling unusual bleeding or bruising unusually weak or tired yellowing of eyes or skin Side effects that usually do not require medical attention (report to your doctor or health patient care manager if they continue or are bothersome): diarrhea dizziness headache heartburn What may interact with this medicine? Do not take this medicine with any of the following medications: aspirin and aspirin-like medicines cidofovir methotrexate NSAIDs, medicines for pain and inflammation, like ibuprofen or naproxen pemetrexed probenecid This medicine may also interact with the following medications: alcohol alendronate alprazolam carbamazepine cyclosporine diuretics flavocoxid fluoxetine ginkgo lithium medicines for high blood pressure like enalapril medicines that affect platelets like pentoxifylline medicines that treat or prevent blood clots like heparin, warfarin muscle relaxants phenytoin steroid medicines like prednisone or cortisone thiothixene What if I miss a dose? If you miss a dose, take it as soon as you can. If it is almost time for your next dose, take only that dose. Do not take double or extra doses. Where should I keep my medicine? Keep out of the reach of children. Store at room temperature between 20 and 25 degrees C (68 and 77 degrees F). Throw away any unused medicine after the expiration date. What should I tell my health care provider before I take this medicine? They need to know if you have any of these conditions: asthma bleeding problems like hemophilia cigarette smoker drink more than 3 alcohol containing drinks a day heart disease or circulation problems such as heart failure or leg edema (fluid retention) high blood pressure kidney disease liver disease stomach bleeding or ulcers an unusual or allergic reaction to ketorolac, aspirin, other NSAIDs, other medicines, foods, dyes, or preservatives or trying to get breast-feeding What should I watch for while using this medicine? Tell your doctor or health patient care manager if your pain does not get better. Talk to your doctor before taking another medicine for pain. Do not treat yourself. This medicine does not prevent heart attack or stroke. In fact, this medicine may increase the chance of a heart attack or stroke. The chance may increase with longer use of this medicine and in people who have heart disease. If you take aspirin to prevent heart attack or stroke, talk with your doctor or health patient care manager. Do not take medicines such as ibuprofen and naproxen with this medicine. Side effects such as stomach upset, nausea, or ulcers may be more likely to occur. Many medicines available without a prescription should not be taken with this medicine. This medicine can cause ulcers and bleeding in the stomach and intestines at any time during treatment. Do not smoke cigarettes or drink alcohol. These increase irritation to your stomach and can make it more susceptible to damage from this medicine. Ulcers and bleeding can happen without warning symptoms and can cause . You may get drowsy or dizzy. Do not drive, use machinery, or do anything that needs mental alertness until you know how this medicine affects you. Do not stand or sit up quickly, especially if you are an older patient. This reduces the risk of dizzy or fainting spells. This medicine can cause you to bleed more easily. Try to avoid damage to your teeth and gums when you brush or floss your teeth. Prednisone Oral tablet What is this medicine? PREDNISONE (PRED ni sone) is a corticosteroid. It is commonly used to treat inflammation of the skin, joints, lungs, and other organs. Common conditions treated include asthma, allergies, and arthritis. It is also used for other conditions, such as blood disorders and diseases of the adrenal glands. How should I use this medicine? Take this medicine by mouth with a glass of water. Follow the directions on the prescription label. Take this medicine with food. If you are taking this medicine once a day, take it in the morning. Do not take more medicine than you are told to take. Do not suddenly stop taking your medicine because you may develop a severe reaction. Your doctor will tell you how much medicine to take. If your doctor wants you to stop the medicine, the dose may be slowly lowered over time to avoid any side effects. Talk to your ferry engineer regarding the use of this medicine in children. Special care may be needed. What side effects may I notice from receiving this medicine? Side effects that you should report to your doctor or health patient care manager as soon as possible: allergic reactions like skin rash, itching or hives, swelling of the face, lips, or tongue changes in emotions or moods changes in vision depressed mood eye pain fever or chills, cough, sore throat, pain or difficulty passing urine increased thirst swelling of ankles, feet Side effects that usually do not require medical attention (report to your doctor or health patient care manager if they continue or are bothersome): confusion, excitement, restlessness headache nausea, vomiting skin problems, acne, thin and shiny skin trouble sleeping weight gain What may interact with this medicine? Do not take this medicine with any of the following medications: metyrapone mifepristone This medicine may also interact with the following medications: aminoglutethimide amphotericin B aspirin and aspirin-like medicines barbiturates certain medicines for diabetes, like glipizide or glyburide cholestyramine cholinesterase inhibitors cyclosporine digoxin diuretics ephedrine female hormones, like estrogens and control pills isoniazid ketoconazole NSAIDS, medicines for pain and inflammation, like ibuprofen or naproxen phenytoin rifampin toxoids vaccines warfarin What if I miss a dose? If you miss a dose, take it as soon as you can. If it is almost time for your next dose, talk to your doctor or health patient care manager. You may need to miss a dose or take an extra dose. Do not take double or extra doses without advice. Where should I keep my medicine? Keep out of the reach of children. Store at room temperature between 15 and 30 degrees C (59 and 86 degrees F). Protect from light. Keep container tightly closed. Throw away any unused medicine after the expiration date. What should I tell my health care provider before I take this medicine? They need to know if you have any of these conditions: [place]'s syndrome diabetes glaucoma heart disease high blood pressure infection (especially a virus infection such as chickenpox, cold sores, or herpes) kidney disease liver disease mental illness myasthenia gravis osteoporosis seizures stomach or intestine problems thyroid disease an unusual or allergic reaction to lactose, prednisone, other medicines, foods, dyes, or preservatives or trying to get breast-feeding What should I watch for while using this medicine? Visit your doctor or health patient care manager for regular checks on your progress. If you are taking this medicine over a prolonged period, carry an identification card with your name and address, the type and dose of your medicine, and your doctor's name and address. This medicine may increase your risk of getting an infection. Tell your doctor or health patient care manager if you are around anyone with measles or chickenpox, or if you develop sores or blisters that do not heal properly. If you are going to have surgery, tell your doctor or health patient care manager that you have taken this medicine within the last twelve months. Ask your doctor or health patient care manager about your diet. You may need to lower the amount of salt you eat. This medicine may affect blood sugar levels. If you have diabetes, check with your doctor or health patient care manager before you change your diet or the dose of your diabetic medicine. You have been given the following additional information: Myofascial Pain Syndrome Osteoarthritis Ketorolac Tromethamine Oral tablet Prednisone Oral tablet (Electronically signed by Zonia Davison A.R.N.P. 06/24/2016 21:45)
== END 2016-06-24 21:20 | disposition home or self-care (01) ==
LOC: ED SRH 20:15
DX: M25.561 Pain in right knee (principal); G89.29 Other chronic pain; I10 Essential (primary) hypertension; J44.9 Chronic obstructive pulmonary disease, unspecified; Z79.891 Long term (current) use of opiate analgesic; Z88.1 Allergy status to other antibiotic agents; Z88.2 Allergy status to sulfonamides; Z88.9 Allergy status to unspecified drugs, medicaments and biological substances